=== PATIENT | male | born 1975 | race American Indian/Alaskan Native ===

== ENCOUNTER 2025-03-18 11:01 | Emergency (ER) | payer MEDICAID, OTHER ==
[2025-03-18 11:39] VITALS: BP 115/82; PULSE 103
== END 2025-03-18 11:37 | disposition home or self-care (01) ==
LOC: DL.ED 11:01
DX: R11.2 Nausea with vomiting, unspecified (principal); E78.00 Pure hypercholesterolemia, unspecified; I10 Essential (primary) hypertension; E11.9 Type 2 diabetes mellitus without complications; F17.210 Nicotine dependence, cigarettes, uncomplicated; Z88.4 Allergy status to anesthetic agent; Z88.0 Allergy status to penicillin; Z79.899 Other long term (current) drug therapy; Z79.82 Long term (current) use of aspirin; Z79.4 Long term (current) use of insulin
CPT/HCPCS: 82947; 99283; 99284

== ENCOUNTER 2025-03-19 11:07 | Inpatient (IN) | payer MEDICAID, OTHER ==
[~2025-03-19 11:07] MED LIST: Sodium Chloride 0.9% 10 ML Syringe FLUSH PRN
[2025-03-19 11:11] LABS: O2 DELIVERY DEVICE ROOM AIR
[2025-03-19 11:13] LABS: HEMATOCRIT 48.1 % (40.0-54.0); MEAN CORPUSCULAR HEMOGLOBIN 30.5 pg (27.0-34.0); MEAN CORPUSCULAR HGB CONC 31.2 g/dL (33.0-35.0); MEAN CORPUSCULAR VOLUME 97.8 fL (80-100); PLATELET COUNT,PLT 365 10^3/uL (150-450); RED BLOOD CELL COUNT 4.92 10^6/uL (4.6-6.2); WHITE BLOOD CELL COUNT,WBC 9.3 10^3/uL (5.0-10.0)
[2025-03-19 11:14] LABS: BASOPHILS PERCENT AUTO 0.2 % (0.0-1.0); EOSINOPHILS PERCENT AUTO 0.1 % (1.0-3.0); LYMPHOCYTES PERCENT AUTO 17.7 % (20.5-50.1); MONOCYTES PERCENT AUTO 3.7 % (2-8); NEUTROPHILS PERCENT AUTO 78.3 % (42.2-75.2)
[2025-03-19 11:15] LABS: BASE EXCESS VENOUS -15.8 mmol/l ((-2)-(+3)); BICARBONATE,VENOUS 11 mmol/l (19-25); O2 SATURATION VENOUS 86.8 % (60-80); PCO2 VENOUS 27 mmHg (41-51); PO2 VENOUS 66 mmHg (35-42)
[2025-03-19 11:17] LABS: PH,VENOUS 7.22 (7.31-7.41)
[2025-03-19] MEDS: Ketorolac 30 MG/ML SDV IVPUSH ONE (11:26)
[2025-03-19] MEDS: Ondansetron 4 MG/2 ML SDV IVPUSH ONE (11:26)
[2025-03-19] MEDS: Sodium Chloride 0.9% 1,000 ML IV ONE ×2 (11:26→12:04)
[2025-03-19 11:34] LABS: BAND PERCENT MAN 4 %; LYMPHOCYTES PERCENT MAN 13 % (20-50); MONOCYTES PERCENT MAN 3 % (2-8); SEG NEUTROPHILS PERCENT MAN 80 % (42-75)
[2025-03-19 11:39] LABS: INR 0.9 (0.9-1.2); PROTHROMBIN TIME 9.2 SEC (9.0-12.0)
[2025-03-19 11:43] LABS: A/G RATIO 0.9; ALANINE AMINOTRANSFERASE,ALT 190 U/L (16-63); ALBUMIN 3.6 g/dL (3.4-5.0); ALKALINE PHOSPHATASE 211 U/L (46-116); ANION GAP 34.5 mEq/L (7-13); ASPARTATE AMNIOTRANSFERASE,AST 154 U/L (15-37); BILIRUBIN TOTAL 1.2 mg/dL (0.2-1.0); BLOOD UREA NITROGEN,BUN 30 mg/dL (7-18); BUN/CREATININE RATIO 16.8 (No establ ref range); CALCIUM 9.7 mg/dL (8.5-10.1); CARBON DIOXIDE,CO2 12 mmol/L (21-32); CHLORIDE,CL 86 mmol/L (98-107); CREATININE 1.79 mg/dL (0.70-1.30); EST CRCL DRUG DOSING (CG) 48.83 mL/min; LIPASE 14 U/L (16-77); MAGNESIUM 2.4 mg/dL (1.8-2.4); POTASSIUM,K 4.5 mmol/L (3.5-5.1); PROTEIN TOTAL,TP 7.6 g/dL (6.4-8.2); SODIUM,NA 128 mmol/L (136-145)
[2025-03-19 12:06] LABS: C-REACTIVE PROTEIN < 0.50 ng/dL (<=0.50); ESTIMATED GFR 46 mL/min (>=60); ETHANOL BLOOD MEDICAL < 3 mg/dL (0); GLUCOSE RANDOM 928 mg/dL (70-99)
[2025-03-19] MEDS ORDERED: Glucagon,Human Recombinant 1 MG Vial IM PRN ×2 (12:06→12:07)
[2025-03-19] MEDS ORDERED: 50% Dextrose in Water 50 ML Syringe IVPUSH PRN ×2 (12:06→12:07)
[2025-03-19] MEDS: Insulin Regular, Human 100 Units/ML 10 ML Vial IV ONE (12:15)
[2025-03-19] MEDS: Insulin Regular in 0.9 % NACL 100 ML IV SCH (12:30)
[2025-03-19] MEDS: GI Cocktail Oral Solution 30 ML PO ONE (12:58)
[2025-03-19] MEDS: HYDROmorphone 0.5 MG/0.5 ML Syringe IVPUSH ONE (13:49)
[2025-03-19] MEDS: Sodium Chloride 0.9% 1,000 ML IV SCH (17:30)
[2025-03-19 17:48] LABS: ALBUMIN 3.6 g/dL (3.4-5.0); BILIRUBIN DIRECT 0.2 mg/dL (0.0-0.2); BILIRUBIN INDIRECT 0.6; BILIRUBIN TOTAL 0.8 mg/dL (0.2-1.0); PHOSPHORUS 4.5 mg/dL (2.6-4.7); PROTEIN TOTAL,TP 7.2 g/dL (6.4-8.2)
[2025-03-19 17:56] LABS: ANION GAP 24.7 mEq/L (7-13); CALCIUM 9.5 mg/dL (8.5-10.1); CREATININE 1.4 mg/dL (0.70-1.30); EST CRCL DRUG DOSING (CG) 60.62 mL/min; POTASSIUM,K 4.7 mmol/L (3.5-5.1)
[2025-03-19] MEDS: Morphine 2 MG/ML SYRINGE IVPUSH PRN (18:19)
[2025-03-19 19:39] LABS: ANION GAP 17.8 mEq/L (7-13); CALCIUM 8.8 mg/dL (8.5-10.1); CREATININE 1.36 mg/dL (0.70-1.30); EST CRCL DRUG DOSING (CG) 62.41 mL/min; POTASSIUM,K 3.8 mmol/L (3.5-5.1)
[2025-03-19 21:24] LABS: ANION GAP 12.6 mEq/L (7-13); CALCIUM 8.9 mg/dL (8.5-10.1); CREATININE 1.3 mg/dL (0.70-1.30); EST CRCL DRUG DOSING (CG) 65.29 mL/min; POTASSIUM,K 4.6 mmol/L (3.5-5.1)
[2025-03-19] MEDS: Dextrose 5%-0.45% NaCl 1,000 ML IV SCH (21:30)
[2025-03-19 23:45] LABS: ANION GAP 12.6 mEq/L (7-13); CALCIUM 8.7 mg/dL (8.5-10.1); CREATININE 1.23 mg/dL (0.70-1.30); POTASSIUM,K 4.6 mmol/L (3.5-5.1)
[2025-03-20] MEDS: Heparin Sodium 5,000 Units/ML Vial SUBCUT SCH (00:02)
[2025-03-20 01:36] LABS: CALCIUM 8.5 mg/dL (8.5-10.1); CREATININE 1.13 mg/dL (0.70-1.30); EST CRCL DRUG DOSING (CG) 75.11 mL/min
[2025-03-20 01:41] LABS: ANION GAP 9.4 mEq/L (7-13); POTASSIUM,K 3.4 mmol/L (3.5-5.1)
[2025-03-20 03:39] LABS: ANION GAP 15.8 mEq/L (7-13); CALCIUM 8.4 mg/dL (8.5-10.1); CREATININE 1.1 mg/dL (0.70-1.30); EST CRCL DRUG DOSING (CG) 77.16 mL/min; POTASSIUM,K 3.8 mmol/L (3.5-5.1)
[2025-03-20 05:24] LABS: BASOPHILS PERCENT AUTO 0.3 % (0.0-1.0); EOSINOPHILS PERCENT AUTO 0.8 % (1.0-3.0); HEMATOCRIT 38.1 % (40.0-54.0); HEMOGLOBIN 12.7 g/dL (14.0-18.0); LYMPHOCYTES PERCENT AUTO 22.7 % (20.5-50.1); MEAN CORPUSCULAR HEMOGLOBIN 30.8 pg (27.0-34.0); MEAN CORPUSCULAR HGB CONC 33.3 g/dL (33.0-35.0); MEAN CORPUSCULAR VOLUME 92.3 fL (80-100); MONOCYTES PERCENT AUTO 10.2 % (2-8); PLATELET COUNT,PLT 266 10^3/uL (150-450); RED BLOOD CELL COUNT 4.13 10^6/uL (4.6-6.2); WHITE BLOOD CELL COUNT,WBC 7.5 10^3/uL (5.0-10.0)
[2025-03-20 05:40] LABS: CALCIUM 8.3 mg/dL (8.5-10.1); CREATININE 1.07 mg/dL (0.70-1.30); EST CRCL DRUG DOSING (CG) 79.36 mL/min; POTASSIUM,K 3.6 mmol/L (3.5-5.1)
[2025-03-20 05:45] LABS: ANION GAP 13.6 mEq/L (7-13)
[2025-03-20] MEDS ORDERED: Glucagon,Human Recombinant 1 MG Vial IM PRN ×2 (07:23→12:18)
[2025-03-20] MEDS ORDERED: 50% Dextrose in Water 50 ML Syringe IVPUSH PRN ×2 (07:23→12:18)
[2025-03-20 07:49] LABS: ANION GAP 12.8 mEq/L (7-13); CALCIUM 8.6 mg/dL (8.5-10.1); CREATININE 1.2 mg/dL (0.70-1.30); EST CRCL DRUG DOSING (CG) 70.76 mL/min; POTASSIUM,K 3.8 mmol/L (3.5-5.1)
[2025-03-20] MEDS: Insulin Isophane NPH, Human 100 Units/ML 3 ML Vial SQ ONE (09:18)
[2025-03-20 09:22] LABS: CALCIUM 8.4 mg/dL (8.5-10.1); CREATININE 1.26 mg/dL (0.70-1.30); EST CRCL DRUG DOSING (CG) 67.39 mL/min; POTASSIUM,K 4.1 mmol/L (3.5-5.1)
[2025-03-20 09:25] LABS: ANION GAP 13.1 mEq/L (7-13)
[2025-03-20 11:25] VITALS: BP 154/79; PULSE 99
[2025-03-20 11:25] LABS: ANION GAP 12.6 mEq/L (7-13); CALCIUM 8.4 mg/dL (8.5-10.1); CREATININE 1.22 mg/dL (0.70-1.30); EST CRCL DRUG DOSING (CG) 69.6 mL/min; POTASSIUM,K 3.6 mmol/L (3.5-5.1)
[2025-03-20] MEDS: Insulin Lispro 100 Units/ML 3 ML Vial SUBCUT ONE (12:29)
== END 2025-03-20 13:35 | disposition home or self-care (01) | DRG 638 ==
LOC: DL.ED 11:07 → DL.MS 13:20
PROVIDERS: ADMIT Internal Medicine; ATTEND Internal Medicine
DX: E11.10 Type 2 diabetes mellitus with ketoacidosis without coma (principal); E87.1 Hypo-osmolality and hyponatremia; N17.9 Acute kidney failure, unspecified; Z59.00 Homelessness unspecified; E78.00 Pure hypercholesterolemia, unspecified; I10 Essential (primary) hypertension; F41.9 Anxiety disorder, unspecified; E86.0 Dehydration; R74.01 Elevation of levels of liver transaminase levels; F32.A Depression, unspecified; Z91.148 Patient's other noncompliance with medication regimen for other reason; Z88.0 Allergy status to penicillin; Z88.8 Allergy status to other drugs, medicaments and biological substances; Z79.4 Long term (current) use of insulin; Z79.82 Long term (current) use of aspirin; Z79.84 Long term (current) use of oral hypoglycemic drugs; Z79.899 Other long term (current) drug therapy; Z90.89 Acquired absence of other organs; Z98.890 Other specified postprocedural states
CPT/HCPCS: 36415; 76705; 80048; 80053; 80076; 80307; 82009; 82803; 82947; 82977; 83605; 83690; 83735; 84100; 84484; 85025; 85610; 86140; 93005; 93010; 96361; 96374; 96375; 99285; 99285-25; A9270-GY; J1644; J1815-GY; J1885; J2270; J2405; J7030

== ENCOUNTER 2025-08-25 14:12 | Inpatient (IN) | payer MEDICAID, OTHER ==
[2025-08-25] MEDS ORDERED: Sodium Chloride 0.9% 10 ML Syringe FLUSH PRN (14:35)
[2025-08-25 14:43] LABS: BASOPHILS PERCENT AUTO 0.3 % (0.0-1.0); EOSINOPHILS PERCENT AUTO 0.2 % (1.0-3.0); LYMPHOCYTES PERCENT AUTO 21.6 % (20.5-50.1); MONOCYTES PERCENT AUTO 4.7 % (2-8); NEUTROPHILS PERCENT AUTO 73.2 % (42.2-75.2); PLATELET COUNT,PLT 289 10^3/uL (150-450); RED BLOOD CELL COUNT 5.35 10^6/uL (4.6-6.2); WHITE BLOOD CELL COUNT,WBC 10.0 10^3/uL (5.0-10.0)
[2025-08-25 15:13] LABS: A/G RATIO 0.9; ALANINE AMINOTRANSFERASE,ALT 35 U/L (16-63); ASPARTATE AMNIOTRANSFERASE,AST 18 U/L (15-37); BILIRUBIN TOTAL 0.9 mg/dL (0.2-1.0); BLOOD UREA NITROGEN,BUN 38 mg/dL (7-18); CARBON DIOXIDE,CO2 22 mmol/L (21-32); CREATININE 1.29 mg/dL (0.70-1.30); POTASSIUM,K 5.0 mmol/L (3.5-5.1); PROTEIN TOTAL,TP 7.8 g/dL (6.4-8.2); SODIUM,NA 126 mmol/L (136-145)
[2025-08-25 15:18] LABS: CHLORIDE,CL 84 mmol/L (98-107)
[2025-08-25] MEDS ORDERED: 50% Dextrose in Water 50 ML Syringe IVPUSH PRN ×2 (15:22→16:25)
[2025-08-25 15:25] LABS: ESTIMATED GFR 68 mL/min (>=60); GLUCOSE RANDOM 653 mg/dL (70-99)
[2025-08-25 15:26] LABS: LACTIC ACID 2.3 mmol/L (0.4-2.0)
[2025-08-25 15:59] LABS: O2 DELIVERY DEVICE ROOM AIR
[2025-08-25 16:01] LABS: BASE EXCESS VENOUS -11.3 mmol/l ((-2)-(+3)); BICARBONATE,VENOUS 16 mmol/l (19-25); O2 SATURATION VENOUS 73.5 % (60-80); PCO2 VENOUS 42 mmHg (41-51); PO2 VENOUS 52 mmHg (35-42)
[2025-08-25 16:07] LABS: PH,VENOUS 7.21 (7.31-7.41)
[2025-08-25 16:26] LABS: APPEARANCE,URINE CLEAR (CLEAR); GLUCOSE,URINE 500 (NEGATIVE); OCCULT BLOOD,URINE NEGATIVE (NEGATIVE)
[2025-08-25] MEDS: Insulin Regular, Human 100 Units/ML 10 ML Vial IV ONE (16:38)
[2025-08-25 17:35] LABS: AMPHETAMINES,URINE NEGATIVE (NEGATIVE); BARBITURATES,URINE NEGATIVE (NEGATIVE); MDMA (ECSTASY), URINE NEGATIVE (NEGATIVE); METHAMPHETAMINES,URINE NEGATIVE (NEGATIVE); OPIATES,URINE NEGATIVE (NEGATIVE); OXYCODONE,URINE NEGATIVE (NEGATIVE); PHENCYCLIDINE,URINE NEGATIVE (NEGATIVE); TCA,URINE NEGATIVE (NEGATIVE)
[2025-08-25 18:08] LABS: BLOOD UREA NITROGEN,BUN 35.0 mg/dL (7-18); CARBON DIOXIDE,CO2 21.0 mmol/L (21-32); CHLORIDE,CL 96.0 mmol/L (98-107); CREATININE 1.25 mg/dL (0.70-1.30); EST CRCL DRUG DOSING (CG) 69.92 mL/min; GAMMA GLUTAMYL TRANSFERASE,GGT 36.0 U/L (15-85); GLUCOSE RANDOM 363.0 mg/dL (70-99); PHOSPHORUS 3.9 mg/dL (2.6-4.7); POTASSIUM,K 4.1 mmol/L (3.5-5.1)
[2025-08-25 18:23] LABS: ESTIMATED GFR 71.0 mL/min (>=60); SODIUM,NA 134.0 mmol/L (136-145)
[2025-08-25 19:33] LABS: BLOOD UREA NITROGEN,BUN 33.0 mg/dL (7-18); CARBON DIOXIDE,CO2 22.0 mmol/L (21-32); CREATININE 1.05 mg/dL (0.70-1.30); EST CRCL DRUG DOSING (CG) 83.24 mL/min; GLUCOSE RANDOM 304.0 mg/dL (70-99); POTASSIUM,K 4.6 mmol/L (3.5-5.1)
[2025-08-25 19:38] LABS: CHLORIDE,CL 97.0 mmol/L (98-107); ESTIMATED GFR 88.0 mL/min (>=60); SODIUM,NA 134.0 mmol/L (136-145)
[2025-08-25 21:34] LABS: BLOOD UREA NITROGEN,BUN 30.0 mg/dL (7-18); CARBON DIOXIDE,CO2 24.0 mmol/L (21-32); CHLORIDE,CL 100.0 mmol/L (98-107); CREATININE 0.99 mg/dL (0.70-1.30); EST CRCL DRUG DOSING (CG) 88.28 mL/min; ESTIMATED GFR 94.0 mL/min (>=60); GLUCOSE RANDOM 246.0 mg/dL (70-99); POTASSIUM,K 4.3 mmol/L (3.5-5.1); SODIUM,NA 136.0 mmol/L (136-145)
[2025-08-25] MEDS: Heparin Sodium 5,000 Units/ML Vial SUBCUT SCH (21:46)
[2025-08-25 23:47] LABS: BLOOD UREA NITROGEN,BUN 26.0 mg/dL (7-18); CARBON DIOXIDE,CO2 27.0 mmol/L (21-32); CHLORIDE,CL 103.0 mmol/L (98-107); CREATININE 0.91 mg/dL (0.70-1.30); EST CRCL DRUG DOSING (CG) 96.04 mL/min; GLUCOSE RANDOM 162.0 mg/dL (70-99); POTASSIUM,K 3.9 mmol/L (3.5-5.1); SODIUM,NA 139.0 mmol/L (136-145)
[2025-08-25 23:48] LABS: ESTIMATED GFR 104.0 mL/min (>=60)
[2025-08-26] MEDS ORDERED: 50% Dextrose in Water 50 ML Syringe IVPUSH PRN ×7 (02:08→23:59)
[2025-08-26] MEDS: Insulin Glarg,Human.Rec.Analog 100 Unit/ML 10 ML Vial SUBCUT ONE ×2 (02:17→09:26)
[2025-08-26] MEDS: Ondansetron 4 MG/2 ML SDV IVPUSH PRN (05:01)
[2025-08-26 06:28] LABS: BASOPHILS PERCENT AUTO 0.1 % (0.0-1.0); EOSINOPHILS PERCENT AUTO 0.6 % (1.0-3.0); LYMPHOCYTES PERCENT AUTO 27.4 % (20.5-50.1); MONOCYTES PERCENT AUTO 7.3 % (2-8); NEUTROPHILS PERCENT AUTO 64.6 % (42.2-75.2); PLATELET COUNT,PLT 263 10^3/uL (150-450); RED BLOOD CELL COUNT 4.93 10^6/uL (4.6-6.2); WHITE BLOOD CELL COUNT,WBC 6.9 10^3/uL (5.0-10.0)
[2025-08-26 06:49] LABS: ALANINE AMINOTRANSFERASE,ALT 23.0 U/L (16-63); ASPARTATE AMNIOTRANSFERASE,AST 14.0 U/L (15-37); BILIRUBIN DIRECT 0.1 mg/dL (0.0-0.2); BILIRUBIN INDIRECT 0.4; BILIRUBIN TOTAL 0.5 mg/dL (0.2-1.0); BLOOD UREA NITROGEN,BUN 27.0 mg/dL (7-18); CARBON DIOXIDE,CO2 23.0 mmol/L (21-32); CHLORIDE,CL 99.0 mmol/L (98-107); CREATININE 0.95 mg/dL (0.70-1.30); EST CRCL DRUG DOSING (CG) 92.0 mL/min; GLUCOSE RANDOM 311.0 mg/dL (70-99); POTASSIUM,K 5.1 mmol/L (3.5-5.1); PROTEIN TOTAL,TP 6.6 g/dL (6.4-8.2); SODIUM,NA 137.0 mmol/L (136-145)
[2025-08-26] MEDS: Insulin Regular, Human 100 Units/ML 10 ML Vial IV ONE ×2 (06:50→09:28)
[2025-08-26 06:53] LABS: A/G RATIO 0.83; ESTIMATED GFR 99.0 mL/min (>=60)
[2025-08-26 10:15] LABS: BLOOD UREA NITROGEN,BUN 28.0 mg/dL (7-18); CARBON DIOXIDE,CO2 20.0 mmol/L (21-32); CHLORIDE,CL 99.0 mmol/L (98-107); CREATININE 0.91 mg/dL (0.70-1.30); EST CRCL DRUG DOSING (CG) 96.04 mL/min; GLUCOSE RANDOM 299.0 mg/dL (70-99); POTASSIUM,K 4.6 mmol/L (3.5-5.1); SODIUM,NA 137.0 mmol/L (136-145)
[2025-08-26 10:25] LABS: ESTIMATED GFR 104.0 mL/min (>=60)
[2025-08-26 12:13] LABS: BLOOD UREA NITROGEN,BUN 25.0 mg/dL (7-18); CARBON DIOXIDE,CO2 25.0 mmol/L (21-32); CHLORIDE,CL 101.0 mmol/L (98-107); CREATININE 0.94 mg/dL (0.70-1.30); EST CRCL DRUG DOSING (CG) 92.98 mL/min; GLUCOSE RANDOM 203.0 mg/dL (70-99); POTASSIUM,K 4.3 mmol/L (3.5-5.1); SODIUM,NA 138.0 mmol/L (136-145)
[2025-08-26 12:24] LABS: ESTIMATED GFR 100.0 mL/min (>=60)
[2025-08-26] MEDS: Metoprolol Tartrate 5 MG/5 ML SDV IVPUSH SCH (12:44)
[2025-08-26 14:25] LABS: BLOOD UREA NITROGEN,BUN 25.0 mg/dL (7-18); CARBON DIOXIDE,CO2 27.0 mmol/L (21-32); CHLORIDE,CL 103.0 mmol/L (98-107); CREATININE 0.93 mg/dL (0.70-1.30); EST CRCL DRUG DOSING (CG) 93.98 mL/min; GLUCOSE RANDOM 157.0 mg/dL (70-99); POTASSIUM,K 4.1 mmol/L (3.5-5.1); SODIUM,NA 138.0 mmol/L (136-145)
[2025-08-26 14:28] LABS: ESTIMATED GFR 101.0 mL/min (>=60)
[2025-08-26 16:18] LABS: BLOOD UREA NITROGEN,BUN 22.0 mg/dL (7-18); CARBON DIOXIDE,CO2 30.0 mmol/L (21-32); CHLORIDE,CL 103.0 mmol/L (98-107); CREATININE 0.97 mg/dL (0.70-1.30); EST CRCL DRUG DOSING (CG) 90.1 mL/min; ESTIMATED GFR 96.0 mL/min (>=60); GLUCOSE RANDOM 139.0 mg/dL (70-99); POTASSIUM,K 4.1 mmol/L (3.5-5.1); SODIUM,NA 140.0 mmol/L (136-145)
[2025-08-26] MEDS: Insulin Lispro Protamine/Lispro 75-25 100 Units/ML 10 ML Vial SUBCUT SCH (17:06)
[2025-08-26 18:14] LABS: BLOOD UREA NITROGEN,BUN 21.0 mg/dL (7-18); CARBON DIOXIDE,CO2 31.0 mmol/L (21-32); CHLORIDE,CL 103.0 mmol/L (98-107); CREATININE 0.9 mg/dL (0.70-1.30); EST CRCL DRUG DOSING (CG) 97.11 mL/min; GLUCOSE RANDOM 216.0 mg/dL (70-99); POTASSIUM,K 3.9 mmol/L (3.5-5.1); SODIUM,NA 140.0 mmol/L (136-145)
[2025-08-26 18:15] LABS: ESTIMATED GFR 105.0 mL/min (>=60)
[2025-08-26] MEDS: Insulin Isophane NPH, Human 100 Units/ML 10 ML Vial SUBCUT ONE (20:35)
[2025-08-27] MEDS: Insulin Regular, Human 100 Units/ML 10 ML Vial IV ONE (00:20)
[2025-08-27 06:26] LABS: BLOOD UREA NITROGEN,BUN 21.0 mg/dL (7-18); CARBON DIOXIDE,CO2 30.0 mmol/L (21-32); CHLORIDE,CL 106.0 mmol/L (98-107); CREATININE 0.84 mg/dL (0.70-1.30); EST CRCL DRUG DOSING (CG) 104.05 mL/min; GLUCOSE RANDOM 197.0 mg/dL (70-99); POTASSIUM,K 3.3 mmol/L (3.5-5.1)
[2025-08-27 06:32] LABS: ESTIMATED GFR 108.0 mL/min (>=60); SODIUM,NA 142.0 mmol/L (136-145)
[2025-08-27 07:39] VITALS: BP 139/82; PULSE 79
[2025-08-27] MEDS: Insulin Isophane NPH, Human 100 Units/ML 10 ML Vial SUBCUT ONE (10:07)
[2025-08-27] MEDS ORDERED: Insulin Isophane NPH, Human 100 Units/ML 10 ML Vial SUBCUT ONE (18:31)
== END 2025-08-27 10:44 | disposition home or self-care (01) | DRG 639 ==
LOC: DL.ED 14:12 → DL.MS 16:30
PROVIDERS: ADMIT Internal Medicine; ATTEND Internal Medicine
DX: E11.10 Type 2 diabetes mellitus with ketoacidosis without coma (principal); E86.0 Dehydration; F41.9 Anxiety disorder, unspecified; I10 Essential (primary) hypertension; E78.00 Pure hypercholesterolemia, unspecified; H54.7 Unspecified visual loss; R79.89 Other specified abnormal findings of blood chemistry; R07.9 Chest pain, unspecified; R74.8 Abnormal levels of other serum enzymes; R35.89 Other polyuria; E11.649 Type 2 diabetes mellitus with hypoglycemia without coma; Z79.891 Long term (current) use of opiate analgesic; Z91.199 Patient's noncompliance with other medical treatment and regimen due to unspecified reason; Z88.0 Allergy status to penicillin; Z88.8 Allergy status to other drugs, medicaments and biological substances; Z79.82 Long term (current) use of aspirin; Z79.4 Long term (current) use of insulin; Z79.899 Other long term (current) drug therapy; Z79.02 Long term (current) use of antithrombotics/antiplatelets; Z90.89 Acquired absence of other organs; Z98.890 Other specified postprocedural states
CPT/HCPCS: 36415; 71045; 80048; 80053; 80076; 80305-QW; 81003; 82009; 82803; 82947; 82977; 83605; 83735; 84100; 84145; 84484; 85025; 87428-QW; 93005; 93010; 96360; 96361; 99223; 99233; 99239; 99285; 99285-25; A9270-GY; J1644; J1815-GY; J2405; J3490; J7030; S5010

== ENCOUNTER 2025-09-20 01:35 | Emergency (ER) | payer MEDICAID, OTHER ==
[2025-09-20] MEDS ORDERED: Sodium Chloride 0.9% 10 ML Syringe FLUSH PRN (01:47)
[2025-09-20 02:02] LABS: BASOPHILS PERCENT AUTO 0.3 % (0.0-1.0); EOSINOPHILS PERCENT AUTO 0.2 % (1.0-3.0); LYMPHOCYTES PERCENT AUTO 21.7 % (20.5-50.1); MONOCYTES PERCENT AUTO 4.5 % (2-8); NEUTROPHILS PERCENT AUTO 73.3 % (42.2-75.2); PLATELET COUNT,PLT 283 10^3/uL (150-450); RED BLOOD CELL COUNT 5.84 10^6/uL (4.6-6.2); WHITE BLOOD CELL COUNT,WBC 8.6 10^3/uL (5.0-10.0)
[2025-09-20] MEDS: Ondansetron 4 MG/2 ML SDV IVPUSH ONE (02:10)
[2025-09-20 02:58] LABS: A/G RATIO 1.1; ALANINE AMINOTRANSFERASE,ALT 85 U/L (16-63); ASPARTATE AMNIOTRANSFERASE,AST 37 U/L (15-37); BILIRUBIN TOTAL 0.8 mg/dL (0.2-1.0); BLOOD UREA NITROGEN,BUN 27 mg/dL (7-18); CARBON DIOXIDE,CO2 24 mmol/L (21-32); CHLORIDE,CL 91 mmol/L (98-107); CREATININE 1.33 mg/dL (0.70-1.30); EST CRCL DRUG DOSING (CG) 65.71 mL/min; GLUCOSE RANDOM 332 mg/dL (70-99); POTASSIUM,K 4.4 mmol/L (3.5-5.1); PROTEIN TOTAL,TP 8.3 g/dL (6.4-8.2); SODIUM,NA 135 mmol/L (136-145)
[2025-09-20 03:06] LABS: ESTIMATED GFR 66 mL/min (>=60); ETHANOL BLOOD MEDICAL < 3 mg/dL (0)
[2025-09-20 03:11] LABS: APPEARANCE,URINE CLEAR (CLEAR); GLUCOSE,URINE 500 (NEGATIVE); OCCULT BLOOD,URINE NEGATIVE (NEGATIVE)
[2025-09-20 03:15] LABS: AMPHETAMINES,URINE NEGATIVE (NEGATIVE); BARBITURATES,URINE NEGATIVE (NEGATIVE); MDMA (ECSTASY), URINE NEGATIVE (NEGATIVE); METHAMPHETAMINES,URINE POSITIVE (NEGATIVE); OPIATES,URINE NEGATIVE (NEGATIVE); OXYCODONE,URINE NEGATIVE (NEGATIVE); PHENCYCLIDINE,URINE NEGATIVE (NEGATIVE); TCA,URINE NEGATIVE (NEGATIVE)
[2025-09-20] MEDS: Take Home: Ondansetron 4 MG Tab.DIS, 5 Tab Pack PO ONE (04:39)
[2025-09-20 05:00] VITALS: BP 143/92; PULSE 113
== END 2025-09-20 05:00 | disposition home or self-care (01) ==
LOC: DL.ED 01:35
DX: K52.9 Noninfective gastroenteritis and colitis, unspecified (principal); E87.20 Acidosis, unspecified; I10 Essential (primary) hypertension; E78.00 Pure hypercholesterolemia, unspecified; E11.9 Type 2 diabetes mellitus without complications; Z88.0 Allergy status to penicillin; Z88.4 Allergy status to anesthetic agent; Z79.82 Long term (current) use of aspirin; Z79.899 Other long term (current) drug therapy; Z79.4 Long term (current) use of insulin
CPT/HCPCS: 36415; 80053; 80305-QW; 80307; 81003; 82947; 83735; 85025; 96361; 96374; 96375; 99284; 99284-25; A9270-GY; J2405; J2765; J7030; Q0162

== ENCOUNTER 2025-09-21 19:45 | Inpatient (IN) | payer MEDICAID, OTHER ==
[2025-09-21] MEDS ORDERED: Sodium Chloride 0.9% 10 ML Syringe FLUSH PRN (20:15)
[2025-09-21 20:26] LABS: PLATELET COUNT,PLT 283 10^3/uL (150-450); RED BLOOD CELL COUNT 5.37 10^6/uL (4.6-6.2); WHITE BLOOD CELL COUNT,WBC 18.1 10^3/uL (5.0-10.0)
[2025-09-21 20:28] LABS: BASOPHILS PERCENT AUTO 0.2 % (0.0-1.0); EOSINOPHILS PERCENT AUTO 0.0 % (1.0-3.0); LYMPHOCYTES PERCENT AUTO 2.8 % (20.5-50.1); MONOCYTES PERCENT AUTO 6.5 % (2-8); NEUTROPHILS PERCENT AUTO 90.5 % (42.2-75.2)
[2025-09-21 20:50] LABS: LACTIC ACID 2.3 mmol/L (0.4-2.0)
[2025-09-21] MEDS ORDERED: 50% Dextrose in Water 50 ML Syringe IVPUSH PRN ×2 (20:50→23:30)
[2025-09-21 20:54] LABS: ALANINE AMINOTRANSFERASE,ALT 41 U/L (16-63); ASPARTATE AMNIOTRANSFERASE,AST 13 U/L (15-37); BILIRUBIN TOTAL 0.9 mg/dL (0.2-1.0); BLOOD UREA NITROGEN,BUN 64 mg/dL (7-18); CHLORIDE,CL 82 mmol/L (98-107); CREATININE 1.96 mg/dL (0.70-1.30); EST CRCL DRUG DOSING (CG) 44.59 mL/min; POTASSIUM,K 5.6 mmol/L (3.5-5.1); PROTEIN TOTAL,TP 6.6 g/dL (6.4-8.2)
[2025-09-21 20:59] LABS: SODIUM,NA 118 mmol/L (136-145)
[2025-09-21 21:01] LABS: CARBON DIOXIDE,CO2 6 mmol/L (21-32); ESTIMATED GFR 41 mL/min (>=60); GLUCOSE RANDOM 674 mg/dL (70-99)
[2025-09-21 21:02] LABS: A/G RATIO 1.00; ETHANOL BLOOD MEDICAL < 3 mg/dL (0)
[2025-09-21] MEDS: Lactated Ringers 1,000 ML IV ONE (21:15)
[2025-09-21 21:16] LABS: O2 DELIVERY DEVICE ROOM AIR
[2025-09-21 21:20] LABS: PH,VENOUS 7.06 (7.31-7.41)
[2025-09-21 21:21] LABS: BASE EXCESS VENOUS -26.4 mmol/l ((-2)-(+3)); BICARBONATE,VENOUS 5 mmol/l (19-25); O2 SATURATION VENOUS 73.5 % (60-80); PCO2 VENOUS 17 mmHg (41-51); PO2 VENOUS 45 mmHg (35-42)
[2025-09-21 21:27] LABS: APPEARANCE,URINE CLEAR (CLEAR); GLUCOSE,URINE 500 (NEGATIVE); OCCULT BLOOD,URINE SMALL (NEGATIVE)
[2025-09-21 21:32] LABS: AMPHETAMINES,URINE NEGATIVE (NEGATIVE); BARBITURATES,URINE NEGATIVE (NEGATIVE); MDMA (ECSTASY), URINE NEGATIVE (NEGATIVE); METHAMPHETAMINES,URINE NEGATIVE (NEGATIVE); OPIATES,URINE NEGATIVE (NEGATIVE); OXYCODONE,URINE NEGATIVE (NEGATIVE); PHENCYCLIDINE,URINE NEGATIVE (NEGATIVE); TCA,URINE NEGATIVE (NEGATIVE)
[2025-09-21 21:36] LABS: BAND PERCENT MAN 3 %; LYMPHOCYTES PERCENT MAN 2 % (20-50); MONOCYTES PERCENT MAN 4 % (2-8); SEG NEUTROPHILS PERCENT MAN 91 % (42-75)
[2025-09-21 21:54] LABS: EPITHELIAL CELLS,URINE RARE /HPF (NOT SEEN)
[2025-09-22] MEDS ORDERED: Ondansetron 4 MG/2 ML SDV IVPUSH PRN
[2025-09-22 00:15] LABS: O2 DELIVERY DEVICE ROOM AIR
[2025-09-22 00:19] LABS: O2 SATURATION ARTERIAL 98 % (95-100); PH,ARTERIAL 7.23 (7.35-7.45); PO2 ARTERIAL 91 mmHg (70-100)
[2025-09-22 00:20] LABS: BASE EXCESS ARTERIAL -20 mmol/L ((-2)-(+3)); BICARBONATE,ARTERIAL 6.5 mmol/L (22-26); PCO2 ARTERIAL 16 mmHg (35-45)
[2025-09-22 00:31] LABS: BLOOD UREA NITROGEN,BUN 59.0 mg/dL (7-18); CARBON DIOXIDE,CO2 9.0 mmol/L (21-32); CHLORIDE,CL 88.0 mmol/L (98-107); CREATININE 1.58 mg/dL (0.70-1.30); EST CRCL DRUG DOSING (CG) 55.32 mL/min; POTASSIUM,K 4.1 mmol/L (3.5-5.1); SODIUM,NA 124.0 mmol/L (136-145)
[2025-09-22 00:34] LABS: ESTIMATED GFR 54.0 mL/min (>=60); GLUCOSE RANDOM 411.0 mg/dL (70-99)
[2025-09-22] MEDS: Insulin Regular, Human 100 Units/ML 10 ML Vial IV ONE (00:36)
[2025-09-22 02:08] LABS: BLOOD UREA NITROGEN,BUN 54.0 mg/dL (7-18); CARBON DIOXIDE,CO2 14.0 mmol/L (21-32); CHLORIDE,CL 91.0 mmol/L (98-107); CREATININE 1.7 mg/dL (0.70-1.30); EST CRCL DRUG DOSING (CG) 51.11 mL/min; ESTIMATED GFR 49.0 mL/min (>=60); GLUCOSE RANDOM 298.0 mg/dL (70-99); POTASSIUM,K 3.7 mmol/L (3.5-5.1); SODIUM,NA 128.0 mmol/L (136-145)
[2025-09-22 04:22] LABS: BLOOD UREA NITROGEN,BUN 47.0 mg/dL (7-18); CARBON DIOXIDE,CO2 20.0 mmol/L (21-32); CHLORIDE,CL 93.0 mmol/L (98-107); CREATININE 1.43 mg/dL (0.70-1.30); EST CRCL DRUG DOSING (CG) 60.76 mL/min; GLUCOSE RANDOM 212.0 mg/dL (70-99); POTASSIUM,K 3.6 mmol/L (3.5-5.1); SODIUM,NA 128.0 mmol/L (136-145)
[2025-09-22 04:25] LABS: ESTIMATED GFR 60.0 mL/min (>=60)
[2025-09-22] MEDS: Heparin Sodium 5,000 Units/ML Vial SUBCUT SCH (06:08)
[2025-09-22 06:33] LABS: BLOOD UREA NITROGEN,BUN 43.0 mg/dL (7-18); CARBON DIOXIDE,CO2 22.0 mmol/L (21-32); CHLORIDE,CL 95.0 mmol/L (98-107); CREATININE 1.25 mg/dL (0.70-1.30); EST CRCL DRUG DOSING (CG) 70.01 mL/min; ESTIMATED GFR 71.0 mL/min (>=60); GLUCOSE RANDOM 142.0 mg/dL (70-99); POTASSIUM,K 3.4 mmol/L (3.5-5.1); SODIUM,NA 130.0 mmol/L (136-145)
[2025-09-22 06:40] LABS: ALANINE AMINOTRANSFERASE,ALT 33.0 U/L (16-63); ASPARTATE AMNIOTRANSFERASE,AST 11.0 U/L (15-37); BILIRUBIN DIRECT 0.1 mg/dL (0.0-0.2); BILIRUBIN INDIRECT 0.5; BILIRUBIN TOTAL 0.6 mg/dL (0.2-1.0); PHOSPHORUS 1.6 mg/dL (2.6-4.7); PROTEIN TOTAL,TP 6.0 g/dL (6.4-8.2)
[2025-09-22 06:41] LABS: A/G RATIO 1.07
[2025-09-22 07:44] LABS: BASOPHILS PERCENT AUTO 0.1 % (0.0-1.0); EOSINOPHILS PERCENT AUTO 0.0 % (1.0-3.0); LYMPHOCYTES PERCENT AUTO 8.8 % (20.5-50.1); MONOCYTES PERCENT AUTO 7.7 % (2-8); NEUTROPHILS PERCENT AUTO 83.4 % (42.2-75.2); PLATELET COUNT,PLT 265 10^3/uL (150-450); RED BLOOD CELL COUNT 5.30 10^6/uL (4.6-6.2); WHITE BLOOD CELL COUNT,WBC 13.4 10^3/uL (5.0-10.0)
[2025-09-22 07:57] LABS: BLOOD UREA NITROGEN,BUN 39.0 mg/dL (7-18); CARBON DIOXIDE,CO2 22.0 mmol/L (21-32); CREATININE 1.13 mg/dL (0.70-1.30); EST CRCL DRUG DOSING (CG) 77.45 mL/min; GLUCOSE RANDOM 70.0 mg/dL (70-99); POTASSIUM,K 3.0 mmol/L (3.5-5.1); SODIUM,NA 131.0 mmol/L (136-145)
[2025-09-22 08:03] LABS: CHLORIDE,CL 97.0 mmol/L (98-107); ESTIMATED GFR 80.0 mL/min (>=60)
[2025-09-22] MEDS: Potassium Chloride 20 MEQ in Premix Bag 2 BAG IV ONE (08:57)
[2025-09-22] MEDS: CHECK NICOTINE TOP SCH (09:03)
[2025-09-22] MEDS ORDERED: Insulin NPH HUM/REG Insulin HM 100 UNIT/ML 3 ML Vial SQ ONE (10:15)
[2025-09-22] MEDS ORDERED: 50% Dextrose in Water 50 ML Syringe IVPUSH PRN ×3 (11:07→17:32)
[2025-09-22] MEDS: Insulin Isophane NPH, Human 100 Units/ML 10 ML Vial SUBCUT ONE (11:12)
[2025-09-22] MEDS: Potassium Phosphates 21 MMOLE in Sodium Chloride 0.9% 500 ML IV ONE (11:16)
[2025-09-22] MEDS: Phosphorus #1 250 MG Tab PO SCH (12:17)
[2025-09-22] MEDS: Insulin Glarg,Human.Rec.Analog 100 Unit/ML 10 ML Vial SUBCUT SCH (22:03)
[2025-09-23 06:37] LABS: BASOPHILS PERCENT AUTO 0.1 % (0.0-1.0); EOSINOPHILS PERCENT AUTO 0.1 % (1.0-3.0); LYMPHOCYTES PERCENT AUTO 14.2 % (20.5-50.1); MONOCYTES PERCENT AUTO 9.9 % (2-8); NEUTROPHILS PERCENT AUTO 75.7 % (42.2-75.2); PLATELET COUNT,PLT 179 10^3/uL (150-450); RED BLOOD CELL COUNT 4.83 10^6/uL (4.6-6.2); WHITE BLOOD CELL COUNT,WBC 9.7 10^3/uL (5.0-10.0)
[2025-09-23 06:48] LABS: BLOOD UREA NITROGEN,BUN 22.0 mg/dL (7-18); CARBON DIOXIDE,CO2 24.0 mmol/L (21-32); CHLORIDE,CL 101.0 mmol/L (98-107); CREATININE 0.67 mg/dL (0.70-1.30); EST CRCL DRUG DOSING (CG) 134.83 mL/min; GLUCOSE RANDOM 151.0 mg/dL (70-99); PHOSPHORUS 1.6 mg/dL (2.6-4.7); POTASSIUM,K 3.5 mmol/L (3.5-5.1); SODIUM,NA 135.0 mmol/L (136-145)
[2025-09-23 06:51] LABS: ESTIMATED GFR 115.0 mL/min (>=60)
[2025-09-23] MEDS: Potassium Phosphates 21 MMOLE in Sodium Chloride 0.9% 500 ML IV ONE (09:41)
[2025-09-23] MEDS: Lactulose Soln 10 GM/15 ML 30 ML UD Cup PO ONE (09:44)
[2025-09-23 12:12] VITALS: PULSE 97
[2025-09-23] MEDS: GI Cocktail Oral Solution 30 ML PO ONE (12:25)
[2025-09-23 15:43] VITALS: BP 143/84
[2025-09-23] MEDS ORDERED: Sucralfate Suspension 1 GM/10 ML Cup PO SCH (16:00)
== END 2025-09-23 15:30 | disposition home or self-care (01) | DRG 871 ==
LOC: DL.ED 19:45 → DL.MS 23:11
PROVIDERS: ADMIT Internal Medicine; ATTEND Internal Medicine
DX: A41.9 Sepsis, unspecified organism (principal); E11.10 Type 2 diabetes mellitus with ketoacidosis without coma; N17.9 Acute kidney failure, unspecified; E87.1 Hypo-osmolality and hyponatremia; R65.20 Severe sepsis without septic shock; E86.0 Dehydration; E87.5 Hyperkalemia; E83.41 Hypermagnesemia; E78.00 Pure hypercholesterolemia, unspecified; E83.39 Other disorders of phosphorus metabolism; I10 Essential (primary) hypertension; F17.200 Nicotine dependence, unspecified, uncomplicated; F15.10 Other stimulant abuse, uncomplicated; K29.00 Acute gastritis without bleeding; H54.7 Unspecified visual loss; F41.9 Anxiety disorder, unspecified; Z88.0 Allergy status to penicillin; Z88.8 Allergy status to other drugs, medicaments and biological substances; Z79.82 Long term (current) use of aspirin; Z79.899 Other long term (current) drug therapy; Z79.4 Long term (current) use of insulin; Z90.49 Acquired absence of other specified parts of digestive tract; Z98.890 Other specified postprocedural states
CPT/HCPCS: 36415; 36600; 71045; 80048; 80053; 80076; 80305-QW; 80307; 81001; 82803; 82947; 82977; 83605; 83735; 84100; 84145; 84484; 85025; 87040; 93005; 93010; 96360; 96361; 99284-25; 99285; A9270-GY; J0612; J0696; J1644; J1815-GY; J3480; J3490; J7030; J7040; J7070; J7120; S5010

== ENCOUNTER 2025-10-27 01:55 | Emergency (ER) | payer MEDICAID, OTHER ==
[2025-10-27] MEDS: GI Cocktail Oral Solution 30 ML PO ONE (02:15)
[2025-10-27] MEDS: Iopamidol 612 MG/ML 100 ML Bottle IVPUSH ONE (02:18)
[2025-10-27 02:20] LABS: BASOPHILS PERCENT AUTO 0.2 % (0.0-1.0); EOSINOPHILS PERCENT AUTO 1.3 % (1.0-3.0); LYMPHOCYTES PERCENT AUTO 42.6 % (20.5-50.1); MONOCYTES PERCENT AUTO 16.0 % (2-8); NEUTROPHILS PERCENT AUTO 39.9 % (42.2-75.2); PLATELET COUNT,PLT 259 10^3/uL (150-450); RED BLOOD CELL COUNT 4.48 10^6/uL (4.6-6.2); WHITE BLOOD CELL COUNT,WBC 4.6 10^3/uL (5.0-10.0)
[2025-10-27 02:32] LABS: APPEARANCE,URINE CLEAR (CLEAR); GLUCOSE,URINE >=1000 (NEGATIVE); OCCULT BLOOD,URINE NEGATIVE (NEGATIVE)
[2025-10-27 02:34] LABS: AMPHETAMINES,URINE NEGATIVE (NEGATIVE); BARBITURATES,URINE NEGATIVE (NEGATIVE); MDMA (ECSTASY), URINE NEGATIVE (NEGATIVE); METHAMPHETAMINES,URINE NEGATIVE (NEGATIVE); OPIATES,URINE NEGATIVE (NEGATIVE); OXYCODONE,URINE NEGATIVE (NEGATIVE); PHENCYCLIDINE,URINE NEGATIVE (NEGATIVE); TCA,URINE NEGATIVE (NEGATIVE)
[2025-10-27 02:35] LABS: O2 DELIVERY DEVICE ROOM AIR; PCO2 VENOUS 45 mmHg (41-51); PH,VENOUS 7.44 (7.31-7.41); PO2 VENOUS 68 mmHg (35-42)
[2025-10-27 02:36] LABS: BASE EXCESS VENOUS 5.8 mmol/l ((-2)-(+3)); BICARBONATE,VENOUS 30 mmol/l (19-25); O2 SATURATION VENOUS 93.8 % (60-80)
[2025-10-27 02:44] LABS: KETONES,BLOOD NEGATIVE
[2025-10-27 02:47] LABS: LACTIC ACID 1.4 mmol/L (0.4-2.0)
[2025-10-27 02:54] LABS: ALANINE AMINOTRANSFERASE,ALT 17 U/L (16-63); ASPARTATE AMNIOTRANSFERASE,AST 9 U/L (15-37); BILIRUBIN TOTAL 0.5 mg/dL (0.2-1.0); BLOOD UREA NITROGEN,BUN 20 mg/dL (7-18); CARBON DIOXIDE,CO2 33 mmol/L (21-32); CHLORIDE,CL 92 mmol/L (98-107); CREATININE 1.33 mg/dL (0.70-1.30); EST CRCL DRUG DOSING (CG) 62.45 mL/min; POTASSIUM,K 4.4 mmol/L (3.5-5.1); PROTEIN TOTAL,TP 7.4 g/dL (6.4-8.2); SODIUM,NA 130 mmol/L (136-145)
[2025-10-27 02:56] LABS: A/G RATIO 0.68; ESTIMATED GFR 66 mL/min (>=60); GLUCOSE RANDOM 543 mg/dL (70-99)
[2025-10-27 02:57] LABS: ETHANOL BLOOD MEDICAL < 3 mg/dL (0)
[2025-10-27] MEDS ORDERED: 50% Dextrose in Water 50 ML Syringe IVPUSH PRN (03:02)
[2025-10-27] MEDS: Insulin Regular, Human 100 Units/ML 10 ML Vial IV ONE (03:22)
[2025-10-27 04:36] VITALS: BP 122/86; PULSE 102
== END 2025-10-27 04:40 | disposition home or self-care (01) ==
LOC: DL.ED 01:55
DX: K21.9 Gastro-esophageal reflux disease without esophagitis (principal); K59.00 Constipation, unspecified; E11.65 Type 2 diabetes mellitus with hyperglycemia; E86.0 Dehydration; I10 Essential (primary) hypertension; E78.00 Pure hypercholesterolemia, unspecified; Z79.82 Long term (current) use of aspirin; Z79.899 Other long term (current) drug therapy; Z79.4 Long term (current) use of insulin; Z79.84 Long term (current) use of oral hypoglycemic drugs
CPT/HCPCS: 36415; 74177; 80053; 80305-QW; 80307; 81003; 82009; 82803; 82947; 83605; 83690; 83735; 84484; 85025; 96360; 99285-25; A9270-GY; J7030; Q9967